=== PATIENT | female | born 1980 | race Native Hawaiian/Other Pacific Islander ===

== ENCOUNTER 2018-06-08 13:34 | Outpatient (CLI) | payer OTHER ==
[2018-06-08 14:14] LABS: POTASSIUM 3.5 mmol/L (3.6-5.2); SODIUM 141 mmol/L (136-145)
[2018-06-08 14:24] LABS: PLATELET COUNT 355 K/uL (152-353)
== END 2018-06-08 19:37 | disposition home or self-care (01) ==
LOC: LABW 13:34
PROVIDERS: Nurse Practitioner Family
DX: R10.9 Unspecified abdominal pain (principal); R19.7 Diarrhea, unspecified
CPT/HCPCS: 36415; 80053; 81000; 82150; 83690; 84702; 85027; 87015; 87045; 87324; 87328; 87329; 87338; 87449; 87899

== ENCOUNTER 2020-06-27 19:32 | Emergency (ER) | payer OTHER ==
[~2020-06-27] VITALS: Ht 162.6 cm; Wt 74.8 kg
[2020-06-27 19:41] VITALS: BP 129/89; TEMP 99
== END 2020-06-27 22:02 ==
LOC: ED 19:32
PROC: 0HQGXZZ Repair Left Hand Skin, External Approach (ICD-10-PCS; principal; 2020-06-27)
DX: S61.012A Laceration without foreign body of left thumb without damage to nail, initial encounter (principal); W26.0XXA Contact with knife, initial encounter; Y92.89 Other specified places as the place of occurrence of the external cause
CPT/HCPCS: 90471; 90715; 99283; J7040

== ENCOUNTER 2020-11-26 15:43 | Outpatient (CLI) | payer OTHER | END 2020-11-26 19:26 | disposition home or self-care (01) | LOC: LABW 15:43 | PROVIDERS: ATTEND Registered Nurse | DX: K21.9 Gastro-esophageal reflux disease without esophagitis (principal) | CPT/HCPCS: 36415; 86677 ==

== ENCOUNTER 2021-02-18 11:05 | Day surgery (SDC) | payer OTHER ==
[2021-02-10 13:46] LABS: PLATELET COUNT 343 K/uL (152-353)
[2021-02-10 14:09] LABS: POTASSIUM 3.7 mmol/L (3.6-5.2)
[~2021-02-18] VITALS: Ht 30.5 cm; Wt 0.5 kg
== END 2021-02-18 13:10 | disposition home or self-care (01) ==
LOC: OR 11:05
PROVIDERS: ATTEND Internal Medicine Gastroenterology
PROC: 0DB68ZZ Excision of Stomach, Via Natural or Artificial Opening Endoscopic (ICD-10-PCS; principal; 2021-02-18)
PROC: 0DB88ZZ Excision of Small Intestine, Via Natural or Artificial Opening Endoscopic (ICD-10-PCS; 2021-02-18)
PROC: 0D758ZZ Dilation of Esophagus, Via Natural or Artificial Opening Endoscopic (ICD-10-PCS; 2021-02-18)
DX: K22.4 Dyskinesia of esophagus (principal); K22.2 Esophageal obstruction; K29.50 Unspecified chronic gastritis without bleeding; K21.9 Gastro-esophageal reflux disease without esophagitis; R13.19 Other dysphagia; F45.8 Other somatoform disorders; Z20.822 Contact with and (suspected) exposure to COVID-19
CPT/HCPCS: 36415; 80053; 81025; 85027; 87635; G2023; J2001; J2704; U0003

== ENCOUNTER 2021-03-10 09:29 | Outpatient (CLI) | payer OTHER | END 2021-03-10 21:20 | disposition home or self-care (01) | LOC: US 09:29 | PROVIDERS: ATTEND Internal Medicine Gastroenterology | DX: R10.13 Epigastric pain (principal) ==

== ENCOUNTER 2022-02-16 11:32 | Outpatient (CLI) | payer OTHER ==
[2022-02-16 12:03] LABS: PLATELET COUNT 364 K/uL (152-353)
[2022-02-16 12:24] LABS: POTASSIUM 3.6 mmol/L (3.6-5.2)
== END 2022-02-16 19:11 | disposition home or self-care (01) ==
LOC: LABW 11:32
PROVIDERS: ATTEND Nurse Practitioner Family
DX: Z79.899 Other long term (current) drug therapy (principal); Z79.890 Hormone replacement therapy
CPT/HCPCS: 36415; 80053; 80061; 82306; 82607; 82627; 82670; 82746; 83001; 83002; 84144; 84402; 84403; 84439; 84443; 84481; 85027

== ENCOUNTER 2022-06-15 14:32 | Outpatient (CLI) | payer OTHER | END 2022-06-15 20:17 | disposition home or self-care (01) | LOC: LABW 14:32 | PROVIDERS: ATTEND Nurse Practitioner Family | DX: R68.82 Decreased libido (principal); Z79.890 Hormone replacement therapy | CPT/HCPCS: 36415; 84270; 84402; 84403 ==